=== PATIENT | male | born 1990 | race Two or more races ===

== ENCOUNTER 2018-06-09 02:04 | Inpatient (IN) | payer MEDICAID, OTHER ==
[~2018-06-09] VITALS: Ht 170.2 cm; Wt 107.7 kg
[2018-06-09] MEDS ORDERED: SODIUM CHLORIDE 0.9% 1,000 ML IV ONE ×2 (07:20→10:56)
[2018-06-09 08:02] LABS: BASOPHILS % 0.5 % (0.0-2.0); EOSINOPHILS % 0.5 % (0.0-5.0); HEMATOCRIT. 54.1 % (42.0-52.0); HEMOGLOBIN. 18.3 g/dL (14.0-18.0); LYMPHOCYTES % 7.2 % (20.0-50.0); MEAN CORPUSCULAR HEMOGLOBIN 30.8 pg (28.0-32.0); MEAN CORPUSCULAR VOLUME 90.9 fL (80.0-94.0); MEAN PLATELET VOLUME 7.5 fl (7.4-10.4); MONOCYTES % 5.3 % (2.0-8.0); NEUTROPHILS % 86.5 % (40.0-76.0); PLATELET 395 x1000/uL (130-400); RED BLOOD CELL COUNT 5.96 mill/uL (4.7-6.1); RED CELL DISTRIBUTION WIDTH 15.8 % (11.6-14.6)
[2018-06-09 08:08] LABS: CHLORIDE 107 mEq/L (98-107)
[2018-06-09 08:11] LABS: INR 1.2
[2018-06-09 09:46] LABS: CREATINE KINASE 48594 IU/L (39-308)
[2018-06-09 10:11] LABS: CLARITY URINE CLEAR (CLEAR); KETONES URINE TRACE (NEGATIVE); LEUKOCYTE ESTERASE URINE TRACE (NEGATIVE); NITRITE URINE NEGATIVE (NEGATIVE); OCCULT BLOOD URINE 3+ (NEGATIVE); PROTEIN URINE 2+ (NEGATIVE); SPECIFIC GRAVITY URINE 1.012 (1.005-1.030); UROBILINOGEN URINE 0.2 E.U./dL (0.2-1.0)
[2018-06-09 10:13] LABS: COLOR URINE BLOODY (YELLOW)
[2018-06-09] MEDS ORDERED: FENTANYL CITRATE/PF 50MCG/ML 2ML VIAL IV ONE (15:00)
[2018-06-09 15:45] VITALS: BP 176/101
[2018-06-09] MEDS: SODIUM CHLORIDE 0.9% 1,000 ML IV SCH (16:56)
[2018-06-09 17:00] VITALS: BP 173/104
[2018-06-09] MEDS ORDERED: ACETAMINOPHEN 325MG TABLET PO PRN (17:00)
[2018-06-09] MEDS ORDERED: MAGNESIUM HYDROXIDE 400MG/5ML 30ML UDC PO PRN (17:00)
[2018-06-09] MEDS ORDERED: LORAZEPAM 2MG/ML CPJ IV PRN (17:00)
[2018-06-09] MEDS ORDERED: ONDANSETRON HCL 4MG/2ML INJ IV PRN (17:00)
[2018-06-09] MEDS ORDERED: MAGNESIUM/ALUMINUM HYDROXIDE/SIMETHICONE 30ML UDC PO PRN (17:00)
[2018-06-09] MEDS ORDERED: CLONIDINE 0.1MG TABLET PO PRN (17:15)
[2018-06-09] MEDS ORDERED: HYDRALAZINE 20MG/ML VIAL IV PRN (17:15)
[2018-06-09] MEDS ORDERED: METOPROLOL TARTRATE 25MG TABLET PO SCH (17:30)
[2018-06-09] MEDS: METHYLPREDNISOLONE SOD SUCC 125 MG/2 ML VIAL IV SCH (18:09)
[2018-06-09 19:47] LABS: *AMPHETAMINES SCREEN URINE NEGATIVE (NEGATIVE); *BARBITURATES SCREEN URINE NEGATIVE (NEGATIVE); *BENZODIAZEPINES SCREEN URINE NEGATIVE (NEGATIVE); *COCAINE SCREEN URINE NEGATIVE (NEGATIVE); CANNABINOID URINE SCREEN NEGATIVE (NEGATIVE); METHADONE URINE SCREEN NEGATIVE (NEGATIVE); OPIATES URINE SCREEN NEGATIVE (NEGATIVE); PHENCYCLIDINE URINE SCREEN NEGATIVE (NEGATIVE)
[2018-06-09 20:00] VITALS: BP 175/100
[2018-06-09] MEDS: METOPROLOL TARTRATE 25MG TABLET PO SCH (20:55)
[2018-06-09] MEDS: HYDROCODONE/ACETAMINOPHEN 10/325MG TABLET PO PRN (20:56)
[2018-06-09] MEDS: IPRATROPIUM/ALBUTEROL 0.5-3(2.5)MG/3ML NEB INH PRN (21:07)
[2018-06-09 23:51] VITALS: BP 136/78
[2018-06-10] MEDS: METHYLPREDNISOLONE SOD SUCC 125 MG/2 ML VIAL IV SCH ×3 (01:27→17:58)
[2018-06-10] MEDS: DIPHENHYDRAMINE 50MG/ML VIAL IV PRN ×2 (01:28→20:36)
[2018-06-10] MEDS: HYDROCODONE/ACETAMINOPHEN 10/325MG TABLET PO PRN ×4 (01:29→19:06)
[2018-06-10] MEDS: FAMOTIDINE 20MG TABLET PO SCH ×3 (01:44→20:36)
[2018-06-10] MEDS: CLONIDINE 0.1MG TABLET PO SCH ×4 (01:45→21:17)
[2018-06-10 04:00] VITALS: BP 134/79
[2018-06-10] MEDS: SODIUM CHLORIDE 0.9% 1,000 ML IV SCH ×3 (04:50→16:56)
[2018-06-10] MEDS: METOPROLOL TARTRATE 25MG TABLET PO SCH ×3 (05:48→21:16)
[2018-06-10 07:12] LABS: CHLORIDE 108 mEq/L (98-107)
[2018-06-10 07:18] LABS: HEMATOCRIT. 52.5 % (42.0-52.0); HEMOGLOBIN. 17.7 g/dL (14.0-18.0); MEAN CORPUSCULAR HEMOGLOBIN 30.6 pg (28.0-32.0); MEAN CORPUSCULAR VOLUME 90.4 fL (80.0-94.0); MEAN PLATELET VOLUME 7.6 fl (7.4-10.4); PLATELET 445 x1000/uL (130-400); RED CELL DISTRIBUTION WIDTH 15.9 % (11.6-14.6)
[2018-06-10 07:21] LABS: PHOSPHORUS 3.3 mg/dL (2.5-4.9)
[2018-06-10 08:00] VITALS: BP 128/82
[2018-06-10] MEDS: IPRATROPIUM/ALBUTEROL 0.5-3(2.5)MG/3ML NEB INH PRN ×3 (08:25→18:44)
[2018-06-10 09:24] LABS: CREATINE KINASE 10795 IU/L (39-308)
[2018-06-10 12:00] VITALS: BP 146/96
[2018-06-10 16:00] VITALS: BP 140/83
[2018-06-10] MEDS ORDERED: SODIUM CHLORIDE 0.9% 1,000 ML IV SCH (17:40)
[2018-06-10 20:00] VITALS: BP 153/90
[2018-06-10 22:39] LABS: PLATELET ESTIMATE NORMAL
[2018-06-11 00:05] VITALS: BP 125/81
[2018-06-11] MEDS: METHYLPREDNISOLONE SOD SUCC 125 MG/2 ML VIAL IV SCH ×3 (02:15→18:35)
[2018-06-11 03:55] VITALS: BP 135/74
[2018-06-11] MEDS: METOPROLOL TARTRATE 25MG TABLET PO SCH ×2 (05:28→14:00)
[2018-06-11] MEDS: CLONIDINE 0.1MG TABLET PO SCH ×2 (05:28→14:00)
[2018-06-11] MEDS: HYDROCODONE/ACETAMINOPHEN 10/325MG TABLET PO PRN (06:43)
[2018-06-11 07:36] LABS: HEMATOCRIT. 47.6 % (42.0-52.0); HEMOGLOBIN. 16.1 g/dL (14.0-18.0); MEAN CORPUSCULAR HEMOGLOBIN 30.5 pg (28.0-32.0); MEAN CORPUSCULAR VOLUME 90.4 fL (80.0-94.0); MEAN PLATELET VOLUME 7.9 fl (7.4-10.4); PLATELET 423 x1000/uL (130-400); RED BLOOD CELL COUNT 5.27 mill/uL (4.7-6.1); RED CELL DISTRIBUTION WIDTH 15.5 % (11.6-14.6)
[2018-06-11 07:52] LABS: CHLORIDE 102 mEq/L (98-107)
[2018-06-11 07:59] LABS: PHOSPHORUS 3.2 mg/dL (2.5-4.9)
[2018-06-11] MEDS: FAMOTIDINE 20MG TABLET PO SCH ×2 (09:56→20:34)
[2018-06-11 12:00] VITALS: BP 106/59
[2018-06-11 13:31] LABS: HEPATITIS B SURFACE ANTIGEN NEGATIVE
[2018-06-11 13:56] LABS: PLATELET ESTIMATE INCREASED
[2018-06-11 14:01] LABS: HEPATITIS A AB IGM NEGATIVE (NEGATIVE)
[2018-06-11] MEDS ORDERED: DIGOXIN 500MCG/2ML AMP IV ONE (18:15)
[2018-06-11 19:47] LABS: BG CARBOXYHEMOGLOBIN 0.8 % (0.5-1.5); BG DEOXYHEMOGLOBIN 7.3 % (0.0-5.0); BG FRACTION INSPIRED OXYGEN 21; BG HCO3 ACT 25.1 mmol/L (22.0-26.0); BG METHEMOGLOBIN 0.5 % (0.0-1.5); BG OXYGEN SATURATION 92.6 % (92.0-98.5); BG OXYHEMOGLOBIN 91.4 % (94.0-97.0); BG PCO2 38.4 mmHg (35.0-45.0); BG PH 7.433 (7.350-7.450); BG PO2 67.7 mmHg (75.0-100.0); BG SAMPLE SITE RIGHT RADIAL; BG TOTAL HEMOGLOBIN 16.2 g/dL (12.0-18.0); BG VENT MODE ROOM AIR
[2018-06-11 19:56] LABS: CREATINE KINASE 144858 IU/L (39-308)
[2018-06-11 20:00] VITALS: BP 138/90
[2018-06-12] VITALS: BP 106/98
[2018-06-12] MEDS: METHYLPREDNISOLONE SOD SUCC 125 MG/2 ML VIAL IV SCH ×5 (00:14→20:00)
[2018-06-12] MEDS: DIPHENHYDRAMINE 50MG/ML VIAL IV PRN (00:36)
[2018-06-12] MEDS ORDERED: METOPROLOL TARTRATE 25MG TABLET PO SCH (02:00)
[2018-06-12] MEDS: CLONIDINE 0.1MG TABLET PO SCH ×2 (02:00→14:41)
[2018-06-12] MEDS: METOPROLOL TARTRATE 25MG TABLET PO SCH ×3 (03:27→18:00)
[2018-06-12 04:00] VITALS: BP 147/65
[2018-06-12 06:29] LABS: CHLORIDE 103 mEq/L (98-107)
[2018-06-12 06:35] LABS: HEMATOCRIT. 47.2 % (42.0-52.0); HEMOGLOBIN. 15.6 g/dL (14.0-18.0); MEAN CORPUSCULAR VOLUME 91.2 fL (80.0-94.0); MEAN PLATELET VOLUME 8.1 fl (7.4-10.4); PLATELET 425 x1000/uL (130-400); RED BLOOD CELL COUNT 5.18 mill/uL (4.7-6.1); RED CELL DISTRIBUTION WIDTH 15.7 % (11.6-14.6)
[2018-06-12 06:43] LABS: PHOSPHORUS 3.1 mg/dL (2.5-4.9)
[2018-06-12 06:49] LABS: T4 FREE 1.09 ng/dL (0.76-1.46)
[2018-06-12 08:30] LABS: CREATINE KINASE > 102000 IU/L (39-308)
[2018-06-12] MEDS: FOLIC ACID 1MG TABLET PO SCH (08:35)
[2018-06-12] MEDS: METHOTREXATE SODIUM 2 . 5MG TABLET PO SCH ×3 (08:39→21:08)
[2018-06-12] MEDS: FAMOTIDINE 20MG TABLET PO SCH ×2 (08:39→21:10)
[2018-06-12 11:50] LABS: CLARITY URINE CLEAR (CLEAR); COLOR URINE RED (YELLOW); KETONES URINE TRACE (NEGATIVE); LEUKOCYTE ESTERASE URINE 1+ (NEGATIVE); NITRITE URINE NEGATIVE (NEGATIVE); OCCULT BLOOD URINE 3+ (NEGATIVE); PROTEIN URINE 3+ (NEGATIVE); SPECIFIC GRAVITY URINE 1.031 (1.005-1.030)
[2018-06-12 12:04] VITALS: BP 131/77
[2018-06-12 13:52] LABS: PLATELET ESTIMATE SLIGHTLY INCREASED
[2018-06-12] MEDS ORDERED: METHOTREXATE SODIUM 2 . 5MG TABLET PO SCH (15:30)
[2018-06-12 15:41] VITALS: BP 100/70
[2018-06-12 20:05] VITALS: BP 143/73
[2018-06-13] MEDS: HYDROCODONE/ACETAMINOPHEN 10/325MG TABLET PO PRN (00:16)
[2018-06-13 00:35] VITALS: BP 104/51
[2018-06-13 04:00] VITALS: BP 134/53
[2018-06-13] MEDS: METOPROLOL TARTRATE 25MG TABLET PO SCH ×2 (04:23→20:43)
[2018-06-13] MEDS: CLONIDINE 0.1MG TABLET PO SCH ×2 (04:34→04:35)
[2018-06-13] MEDS: METHOTREXATE SODIUM 2 . 5MG TABLET PO SCH (04:36)
[2018-06-13] MEDS: METHYLPREDNISOLONE SOD SUCC 125 MG/2 ML VIAL IV SCH ×3 (05:11→17:35)
[2018-06-13 07:44] LABS: HEMATOCRIT. 48.3 % (42.0-52.0); HEMOGLOBIN. 15.9 g/dL (14.0-18.0); MEAN CORPUSCULAR VOLUME 90.9 fL (80.0-94.0); MEAN PLATELET VOLUME 8.5 fl (7.4-10.4); PLATELET 435 x1000/uL (130-400); RED BLOOD CELL COUNT 5.31 mill/uL (4.7-6.1); RED CELL DISTRIBUTION WIDTH 15.5 % (11.6-14.6)
[2018-06-13 07:53] LABS: CHLORIDE 101 mEq/L (98-107)
[2018-06-13 08:00] VITALS: BP 130/83
[2018-06-13] MEDS: FAMOTIDINE 20MG TABLET PO SCH ×2 (08:07→20:43)
[2018-06-13] MEDS: FOLIC ACID 1MG TABLET PO SCH (08:07)
[2018-06-13 09:41] LABS: CREATINE KINASE 70124 IU/L (39-308)
[2018-06-13 12:00] VITALS: BP 159/81
[2018-06-13 15:23] LABS: PLATELET ESTIMATE SLIGHTLY INCREASED
[2018-06-13 16:00] VITALS: BP 136/80
[2018-06-13 17:09] LABS: ANTI-DNA DOUBLE STRANDED QUANT < 1 IU/mL (0-9); ANTI-JO 1 ABS <0.2 AI (0.0-0.9); RNP ANTIBODY < 0.2 AI (0.0-0.9); SMITH ANTIBODY < 0.2 AI (0.0-0.9)
[2018-06-13 20:00] VITALS: BP 133/79
[2018-06-13] MEDS ORDERED: LORAZEPAM 0.5MG TABLET PO PRN (21:45)
[2018-06-13] MEDS ORDERED: DEXT 5%/0.45% NACL KCL 10MEQ/L 1,000 ML IV SCH ×2 (21:45→23:30)
[2018-06-14] VITALS (8 sets, daily range): BP systolic 101–173; BP diastolic 52–86
[2018-06-14] MEDS: METHYLPREDNISOLONE SOD SUCC 125 MG/2 ML VIAL IV SCH ×4 (00:03→17:09)
[2018-06-14] MEDS: CLONIDINE 0.1MG TABLET PO SCH ×2 (01:17→13:30)
[2018-06-14] MEDS: FAMOTIDINE 20MG TABLET PO SCH ×2 (07:55→20:30)
[2018-06-14] MEDS: FOLIC ACID 1MG TABLET PO SCH (07:55)
[2018-06-14] MEDS: AZATHIOPRINE 50MG TABLET PO SCH ×2 (07:55→17:08)
[2018-06-14] MEDS: METOPROLOL TARTRATE 25MG TABLET PO SCH ×2 (07:56→20:31)
[2018-06-14 09:06] LABS: ALDOLASE < 1.2 U/L (3.3-10.3); ANGIOTENSION CONVERTING ENZYME 36 U/L (14-82); COMPLEMENT C3 132 mg/dL (82-167); GLOMERULAR BASEMENT MEMB AB 3 units (0-20)
[2018-06-14] MEDS ORDERED: IOHEXOL-300 100 ML BOTTLE ONE (09:37)
[2018-06-14 13:06] LABS: ACTIN (SMOOTH MUSCLE) ANTIBODY 10 Units (0-19); ANTI-MYELOPEROXIDASE AB < 9.0 U/mL (0.0-9.0); ANTI-PROTEINASE 3 ABS < 3.5 U/mL (0.0-3.5)
[2018-06-14] MEDS ORDERED: DEXT 5%/0.45% NACL KCL 10MEQ/L 1,000 ML IV SCH (14:45)
[2018-06-14 15:06] LABS: ANA IFA Negative (.); ATYPICAL P-ANCA <1:20 titer (Neg:<1:20); CYTOPLASMIC C-ANCA <1:20 titer (Neg:<1:20); PERINUCLEAR P-ANCA <1:20 titer (Neg:<1:20)
[2018-06-14 15:52] LABS: CHLORIDE 103 mEq/L (98-107)
[2018-06-14] MEDS ORDERED: IPRATROPIUM/ALBUTEROL 0.5-3(2.5)MG/3ML NEB HHN PRN (16:00)
[2018-06-14 16:59] LABS: CREATINE KINASE 24035 IU/L (39-308)
[2018-06-14 17:48] LABS: MONOTEST NEGATIVE (NEGATIVE)
[2018-06-14 19:06] LABS: CYC CITRULLINATED PEP IgG/IgA 6 units (0-19)
[2018-06-14] MEDS: SODIUM BICARBONATE 150 MEQ in DEXTROSE 5% WATER 1,000 ML IV SCH (19:07)
[2018-06-14] MEDS: GUAIFENESIN 600MG ER TABLET PO SCH (20:31)
[2018-06-15] VITALS (14 sets, daily range): BP systolic 117–150; BP diastolic 64–88
[2018-06-15] MEDS: IPRATROPIUM/ALBUTEROL 0.5-3(2.5)MG/3ML NEB HHN SCH ×4 (00:30→14:04)
[2018-06-15] MEDS: METHYLPREDNISOLONE SOD SUCC 125 MG/2 ML VIAL IV SCH ×2 (00:57→06:13)
[2018-06-15] MEDS: CLONIDINE 0.1MG TABLET PO SCH ×2 (01:02→13:39)
[2018-06-15] MEDS: DIPHENHYDRAMINE 50MG/ML VIAL IV PRN (02:48)
[2018-06-15] MEDS: SODIUM BICARBONATE 150 MEQ in DEXTROSE 5% WATER 1,000 ML IV SCH (05:40)
[2018-06-15 07:00] LABS: HEMATOCRIT. 45.9 % (42.0-52.0); HEMOGLOBIN. 15.3 g/dL (14.0-18.0); MEAN CORPUSCULAR HEMOGLOBIN 30.2 pg (28.0-32.0); MEAN CORPUSCULAR VOLUME 90.2 fL (80.0-94.0); PLATELET 376 x1000/uL (130-400); RED BLOOD CELL COUNT 5.09 mill/uL (4.7-6.1); RED CELL DISTRIBUTION WIDTH 15.2 % (11.6-14.6)
[2018-06-15 07:07] LABS: INR 1.3; PARTIAL THROMBOPLASTIN TIME 25.2 sec (23.4-31.0); PROTHROMBIN TIME 13.3 sec (9.1-11.1)
[2018-06-15 07:18] LABS: CHLORIDE 104 mEq/L (98-107)
[2018-06-15 08:09] LABS: CREATINE KINASE 12660 IU/L (39-308)
[2018-06-15] MEDS: FOLIC ACID 1MG TABLET PO SCH ×2 (08:43→09:50)
[2018-06-15] MEDS: AZATHIOPRINE 50MG TABLET PO SCH ×2 (08:43→09:50)
[2018-06-15] MEDS: METOPROLOL TARTRATE 25MG TABLET PO SCH ×2 (08:43→09:50)
[2018-06-15] MEDS: GUAIFENESIN 600MG ER TABLET PO SCH ×2 (08:44→09:50)
[2018-06-15] MEDS: FAMOTIDINE 20MG TABLET PO SCH ×2 (08:44→09:50)
[2018-06-15] MEDS ORDERED: FENTANYL CITRATE/PF 50MCG/ML 2ML VIAL ONE (08:45)
[2018-06-15] MEDS ORDERED: LIDOCAINE HCL 1% 20ML VIAL (Pyxis) INJ ONE (08:49)
[2018-06-15] MEDS ORDERED: SODIUM BICARBONATE 4% (2.4MEQ) 5ML VIAL IV ONE (08:50)
[2018-06-15] MEDS ORDERED: FENTANYL CITRATE/PF 50MCG/ML 2ML VIAL IV ONE (09:15)
[2018-06-15] MEDS ORDERED: LEVOFLOXACIN 250MG TABLET PO SCH (11:00)
[2018-06-15 14:24] LABS: HEMATOCRIT 47.3 % (42.0-52.0); HEMOGLOBIN 15.9 g/dL (14.0-18.0)
[2018-06-15 15:06] LABS: CREATINE KINASE 11883 IU/L (39-308)
[2018-06-15] MEDS ORDERED: PREDNISONE 10MG TABLET PO SCH (17:00)
[2018-06-15 21:05] LABS: PLATELET ESTIMATE NORMAL
[2018-06-18 13:06] LABS: HIV SCREEN 4G Non Reactive (Non Reactive)
[2018-06-19] MEDS ORDERED: METHOTREXATE SODIUM 2 . 5MG TABLET PO SCH (09:00)
== END 2018-06-15 15:51 | disposition home or self-care (01) | DRG 346 ==
LOC: ER 11:16 → 6WST 11:48 → ENRESERV 14:53 → 6WST 06-13 15:02
PROVIDERS: ADMIT Internal Medicine; ATTEND Internal Medicine
PROC: 0TB03ZX Excision of Right Kidney, Percutaneous Approach, Diagnostic (ICD-10-PCS; principal; 2018-06-15)
DX: M33.22 Polymyositis with myopathy (principal); J96.01 Acute respiratory failure with hypoxia; M62.82 Rhabdomyolysis; R65.10 Systemic inflammatory response syndrome (SIRS) of non-infectious origin without acute organ dysfunction; R16.0 Hepatomegaly, not elsewhere classified; I77.6 Arteritis, unspecified; R74.0 Nonspecific elevation of levels of transaminase and lactic acid dehydrogenase [LDH]; R31.0 Gross hematuria; R80.9 Proteinuria, unspecified; R61 Generalized hyperhidrosis; I10 Essential (primary) hypertension; Z88.0 Allergy status to penicillin; Z83.3 Family history of diabetes mellitus
CPT/HCPCS: 36415; 36600; 71045; 71260; 76705; 76770; 77012; 80048; 80305; 82085; 82164; 82375; 82550; 82805; 83520; 83605; 83735; 83880; 84100; 84145; 84156; 84439; 84484; 85014; 85018; 85379; 85651; 86160; 86200; 86225; 86235; 86256; 86308; 86431; 86705; 86709; 86803; 87340; 87389; 87804; 88305; 88346; 88348; 93005; 93970; 94640; 96361; 96374; 96375; 97162; 99285; J0360; J1160; J1200; J2930; J3010; J3490; J7030; J7040; J7050; J7070; J7500; J7620; J8610; Q9967

== ENCOUNTER 2019-04-18 15:08 | Emergency (ER) | payer OTHER ==
[~2019-04-18] VITALS: Ht 167.6 cm; Wt 94.0 kg
[2019-04-18 16:31] LABS: CHLORIDE 106 mEq/L (98-107)
[2019-04-18 16:32] LABS: INR 1.1
[2019-04-18 16:46] LABS: BASOPHILS % 0.4 % (0.0-2.0); EOSINOPHILS % 0.1 % (0.0-5.0); HEMATOCRIT. 47.5 % (42.0-52.0); HEMOGLOBIN. 16.2 g/dL (14.0-18.0); LYMPHOCYTES % 9.1 % (20.0-50.0); MEAN CORPUSCULAR HEMOGLOBIN 30.7 pg (28.0-32.0); MEAN CORPUSCULAR VOLUME 90.1 fL (80.0-94.0); MEAN PLATELET VOLUME 8.6 fl (7.4-10.4); MONOCYTES % 6.4 % (2.0-8.0); PLATELET 264 x1000/uL (130-400); RED BLOOD CELL COUNT 5.27 mill/uL (4.7-6.1)
[2019-04-18] MEDS ORDERED: SODIUM CHLORIDE 0.9% 1,000 ML IV ONE (17:37)
[2019-04-18] MEDS ORDERED: ONDANSETRON HCL 4MG/2ML INJ IV STA (17:37)
[2019-04-18] MEDS ORDERED: KETOROLAC 30MG/ML VIAL IV STA (17:37)
[2019-04-18] MEDS ORDERED: MORPHINE SULFATE 4 MG/ML CPJ (NOT FOR IM USE) IV STA (17:37)
[2019-04-18 17:52] LABS: CLARITY URINE CLEAR (CLEAR); COLOR URINE YELLOW (YELLOW); KETONES URINE NEGATIVE (NEGATIVE); LEUKOCYTE ESTERASE URINE NEGATIVE (NEGATIVE); NITRITE URINE NEGATIVE (NEGATIVE); OCCULT BLOOD URINE NEGATIVE (NEGATIVE); PROTEIN URINE TRACE (NEGATIVE); SPECIFIC GRAVITY URINE 1.008 (1.005-1.030); UROBILINOGEN URINE 0.2 E.U./dL (0.2-1.0)
[2019-04-18 18:05] LABS: *AMPHETAMINES SCREEN URINE NEGATIVE (NEGATIVE); *BARBITURATES SCREEN URINE NEGATIVE (NEGATIVE)
[2019-04-18 18:06] LABS: *BENZODIAZEPINES SCREEN URINE NEGATIVE (NEGATIVE); *COCAINE SCREEN URINE NEGATIVE (NEGATIVE); CANNABINOID URINE SCREEN NEGATIVE (NEGATIVE); METHADONE URINE SCREEN NEGATIVE (NEGATIVE); OPIATES URINE SCREEN NEGATIVE (NEGATIVE); PHENCYCLIDINE URINE SCREEN NEGATIVE (NEGATIVE)
[2019-04-18 20:19] VITALS: BP 119/70
== END 2019-04-18 20:21 | disposition home or self-care (01) ==
LOC: ER 15:08
DX: K80.80 Other cholelithiasis without obstruction (principal); B36.0 Pityriasis versicolor; Z88.0 Allergy status to penicillin
CPT/HCPCS: 36415; 74176; 80053; 80305; 80320; 81003; 83690; 85025; 85610; 96361; 96374; 96375; 99284; J1885; J2270; J2405; J7030; Z7610; G0480

== ENCOUNTER 2020-06-11 07:27 | Emergency (ER) | payer OTHER ==
[~2020-06-11] VITALS: Ht 167.6 cm; Wt 100.0 kg
[2020-06-11 07:40] VITALS: BP 143/77
== END 2020-06-11 08:08 | disposition home or self-care (01) ==
LOC: ER 07:27
DX: Z20.828 Contact with and (suspected) exposure to other viral communicable diseases (principal); R51.9 Headache, unspecified; R05 Cough; Z88.0 Allergy status to penicillin
CPT/HCPCS: 99281